=== PATIENT | male | born 1985 | race Caucasian/White ===

== ENCOUNTER 2018-01-06 18:47 | Emergency (ER) | payer OTHER ==
[~2018-01-06] VITALS: Ht 195.6 cm; Wt 88.5 kg
[2018-01-06 19:10] VITALS: BP 135/77
--- NOTE | 2018-01-06 19:26 | ED SKIN/ALLERGY COMPLAINT ---
History of Present Illness General Chief Complaint: Allergy Symptoms Stated Complaint: HIVES ON BACK Source: patient Exam Limitations: no limitations Vital Signs & Intake/Output Vital Signs & Intake/Output Vital Signs Date Time Temp Pulse Resp B/P B/P Pulse O2 O2 Flow FiO2 Mean Ox Delivery Rate 01/06 1949 Room Air 01/06 1910 96.5 78 18 135/77 97 Room Air Allergies Coded Allergies: No Known Allergies (02/04/16) Reconcile Medications Prednisone 20 MG TABLET 1 TAB PO BID RASH Triage Note: PT TO TRIAGE C/O HIVES ON BACK FIRST NOTICED THIS MORNING. PER PT WAS TAKING IBUPROFEN AND AMOXICILLIN FOR RECENT DENTAL PROCEDURE. LAST DOSE AMOXICILLIN 2 DAYS AGO. DENIES SOB. EVAL'D BY MD GANDARA. Triage Nurses Notes Reviewed? yes HPI: 32M no PMH presenting with hives on his back for a few hours. Took Amoxicillin and Ibuprofen 2 days ago for a dental procedure. Hives are itchy but not painful, and are only present on his back. He denies any systemic symptoms, denying fever, chills, sore throat, throat pain, difficulty breathing, wheezing, abdominal pain, diarrhea, dysuria. No new foods or exposures to any allergens. NEver had similar symptoms. Past History Travel History Traveled to [place] past 21 day No Medical History Any Pertinent Medical History? 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 No Review of Systems Review of Systems Constitutional: Reports: no symptoms. EENTM: Reports: no symptoms. Respiratory: Reports: no symptoms. Cardiovascular: Reports: no symptoms. GI: Reports: no symptoms. Genitourinary: Reports: no symptoms. Musculoskeletal: Reports: no symptoms. Skin: Reports: no symptoms. Neurological/Psychological: Reports: no symptoms. Hematologic/Endocrine: Reports: no symptoms. Immunologic/Allergic: Reports: no symptoms. All Other Systems: Reviewed and Negative Physical Exam Physical Exam General Appearance: well developed/nourished, no apparent distress Head: atraumatic Eyes: Bilateral: normal appearance. Ears, Nose, Throat: normal pharynx, normal ENT inspection, hearing grossly normal Neck: normal inspection, supple Respiratory: normal breath sounds Cardiovascular: regular rate/rhythm Gastrointestinal: soft, non-tender Back: normal inspection Extremities: normal inspection, normal range of motion, no edema Neurologic/Psych: awake, alert, oriented x 3, normal mood/affect Skin: urticaria on back Lymphatic: no anterior cervical angelina Progress Differential Diagnosis: abscess/cellulitis, allergic reaction, anaphylaxis, angioedema, asthma, contact dermatitis, drug reaction, erythema multiforme, lyme disease, meningitis/sepsis, piyriasis rosea, RMSF, scarlet fever, shingles, syphilis/gonococcemia, toxic shock syndrome, urticaria Plan of Care: Rash improved after treatment. Patient left before discharge instructions could be given. Departure Departure Disposition: HOME OR SELF CARE Condition: Stable Clinical Impression Primary Impression: Urticaria Referrals: Patient Has No Primary Care Dr (PCP/Family) Additional Instructions: Follow up with your PCP. Return to ER if any new or worsening symptoms. Departure Forms: Customer Survey General Discharge Information
== END 2018-01-06 20:14 ==
LOC: ERH 18:47
DX: L50.9 Urticaria, unspecified (principal)

== ENCOUNTER 2018-01-08 09:06 | Emergency (ER) | payer OTHER ==
[~2018-01-08] VITALS: Ht 195.6 cm; Wt 88.5 kg
[2018-01-08 09:11] VITALS: BP 131/81
[2018-01-08] MEDS ORDERED: PREDNISONE20 M1 PO (09:32)
--- NOTE | 2018-01-08 09:32 | ED SKIN/ALLERGY COMPLAINT ---
History of Present Illness General Chief Complaint: General Adult Stated Complaint: ALLERGIC REACTION Source: patient, old records Exam Limitations: no limitations Vital Signs & Intake/Output Vital Signs & Intake/Output Vital Signs Date Time Temp Pulse Resp B/P B/P Pulse O2 O2 Flow FiO2 Mean Ox Delivery Rate 01/08 0911 96.8 88 18 131/81 97 Allergies Coded Allergies: No Known Allergies (02/04/16) Reconcile Medications Prednisone 20 MG TABLET 1 TAB PO BID RASH Triage Note: 32 Y/O MALE C/O CONTINUED ALLERGIC REACTION; ONSET TUESDAY AFTER TAKING 1 ALEVE. PT REPORTS HIVES AND "SWELLING" TO BODY. WAS EVAL'D IN ED AND HAS BEEN TAKING BENADRYL WITH NO RELIEF, LAST DOSE 2 TABS 0700 TODAY. PT STATES THE HIVES CONTINUE AND HE IS NOW NOTICING REDNESS/SWELLING TO VARIOUS PARTS OF BODY. NO RESPIRATORY INVOLVEMENT NOTED, PT DRINKING ALL DONUTS WITHOUT DIFFICULTY. SAT 99% RA. Triage Nurses Notes Reviewed? yes HPI: 32M no PMH with 3 days of urticarial rash. Started on his back and was seen here 2 days prior. Since then has spread to his trunk and arms. It is itchy, no discharge, no systemic symptoms. Denies fever, chills, diffficulty breathing or swallowing, diarrhea, constipation, dysuria, chest pain, palpitations, SOB. No new foods, detergents, cosmetics, supplements, medications, or any other known allergen. Past History Travel History Traveled to [place] past 21 day No Medical History Any Pertinent Medical History? 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 No Review of Systems Review of Systems Constitutional: Reports: no symptoms. EENTM: Reports: no symptoms. Respiratory: Reports: no symptoms. Cardiovascular: Reports: no symptoms. GI: Reports: no symptoms. Genitourinary: Reports: no symptoms. Musculoskeletal: Reports: no symptoms. Skin: Reports: no symptoms. Neurological/Psychological: Reports: no symptoms. Hematologic/Endocrine: Reports: no symptoms. Immunologic/Allergic: Reports: no symptoms. All Other Systems: Reviewed and Negative Physical Exam Physical Exam General Appearance: well developed/nourished, mild distress Head: atraumatic Eyes: Bilateral: normal appearance. Ears, Nose, Throat: normal pharynx, normal ENT inspection, hearing grossly normal Neck: normal inspection, supple Respiratory: normal breath sounds, no respiratory distress Cardiovascular: regular rate/rhythm Gastrointestinal: soft, non-tender Back: normal inspection Extremities: normal inspection, normal range of motion, no edema Neurologic/Psych: awake, alert, oriented x 3, normal mood/affect Skin: urticarial rash on back and arms Lymphatic: no anterior cervical angelina Progress Differential Diagnosis: abscess/cellulitis, allergic reaction, anaphylaxis, angioedema, asthma, contact dermatitis, drug reaction, erythema multiforme, lyme disease, meningitis/sepsis, piyriasis rosea, RMSF, scarlet fever, shingles, syphilis/gonococcemia, toxic shock syndrome, urticaria Plan of Care: Current Medications Sig/Tamela Start time Last Medication Dose Stop Time Status Admin Prednisone 40 MG ONCE ONE 01/08 930 UNVr 01/08 931 Departure Departure Disposition: HOME OR SELF CARE Condition: Stable Clinical Impression Primary Impression: Urticaria Referrals: Patient Has No Primary Care Dr (PCP/Family) Cielo HEADLEY,[place] Additional Instructions: Follow up with your PCP. Return to ER if new or worsening symptoms. Departure Forms: Customer Survey General Discharge Information Prescriptions: Current Visit Scripts Prednisone 1 TAB PO BID #10 TAB
== END 2018-01-08 10:24 ==
LOC: ERH 09:06
DX: L50.9 Urticaria, unspecified (principal)